=== PATIENT | male | born 1990 | race Caucasian/White ===

== ENCOUNTER 2017-09-03 21:28 | Emergency (ER) | payer BC ==
[~2017-09-03] VITALS: Ht 175.3 cm; Wt 57.6 kg
[2017-09-03 21:37] VITALS: Ht 175.3 cm; Wt 57.6 kg
[2017-09-04 01:07] VITALS: BP 124/87
== END 2017-09-04 01:07 | disposition home or self-care (01) ==
LOC: ED 21:28
DX: S01.81XA Laceration without foreign body of other part of head, initial encounter (principal); Z88.0 Allergy status to penicillin; Y04.0XXA Assault by unarmed brawl or fight, initial encounter; Y93.89 Activity, other specified; Y92.89 Other specified places as the place of occurrence of the external cause; Y99.8 Other external cause status
CPT/HCPCS: J2001